=== PATIENT | male | born 1995 | race African-American/Black ===

== ENCOUNTER 2017-07-01 04:14 | Day surgery (SDC) | payer OTHER ==
[2017-07-01] MEDS ORDERED: ONDANSETRON 4 MG/2 ML VIAL IVP STA ×2 (04:45→05:49)
[2017-07-01] MEDS ORDERED: SODIUM CHLORIDE 0.9% 1,000 ML IV STA ×2 (04:45→08:48)
[2017-07-01 04:56] LABS: BASOPHILS # (AUTO) 0.1 10^3/uL (0.0-0.1); BASOPHILS % (AUTO) 0.7 %; EOSINOPHILS # (AUTO) 0.1 10^3/uL (0.0-0.7); EOSINOPHILS % (AUTO) 0.8 %; HGB - HEMOGLOBIN 16.6 g/dL (14.0-18.0); LYMPHOCYTES # (AUTO) 1.7 10^3/uL (1.5-3.5); LYMPHOCYTES % (AUTO) 15.7 %; MEAN CORPUSCULAR HEMOGLOBIN 27.2 pg (27.0-31.0); MEAN CORPUSCULAR HGB CONC 33.5 g/dL (32.0-36.0); MEAN CORPUSCULAR VOLUME 81.1 fL (80.0-94.0); MEAN PLATELET VOLUME 7.8 fL (7.4-11.4); MONOCYTES # (AUTO) 0.9 10^3/uL (0.0-1.0); MONOCYTES % (AUTO) 8.6 %; NEUTROPHILS # (AUTO) 7.9 10^3/uL (1.5-6.6); NEUTROPHILS % (AUTO) 74.2 %; PLT - PLATELET COUNT 226 10^3/uL (130-450); RED BLOOD COUNT 6.12 10^6/uL (4.70-6.10); RED CELL DISTRIBUTION WIDTH 13.7 % (12.0-15.0); WHITE BLOOD COUNT 10.7 x10^3/uL (4.8-10.8)
[2017-07-01 05:01] LABS: ALBUMIN/GLOBULIN RATIO 1.2 (1.0-2.2); BILIRUBIN,TOTAL 0.7 mg/dL (0.2-1.0); CALCIUM 9.2 mg/dL (8.5-10.3); CREATININE 1.2 mg/dL (0.6-1.2); TOTAL PROTEIN 7.4 g/dL (6.7-8.2)
--- NOTE | 2017-07-01 05:37 | ED Physician Documentation ---
PD HPI ABD PAIN - Stated complaint Stated Complaint: ABD PAIN - Chief complaint Chief Complaint: Abd Pain - History obtained from History obtained from: Patient - History of Present Illness Timing - onset: Enter time (00:00 (midnight)), Today Timing - duration: Hours Timing - details: Abrupt onset Pain level max: 10 Pain level now: 8 Quality: Pain Location: Other (across lower abdomen, more pronounced on right) Radiation: Lower back Improved by: Other (no ameliorating factors) Worsened by: Palpation Associated symptoms: Nausea, Vomiting. No: Fever, Diarrhea, Constipation Similar symptoms before: Has not had sx before Recently seen: Not recently seen Review of Systems Constitutional: denies: Fever, Chills, Sweats Cardiac: reports: Reviewed and negative Respiratory: reports: Reviewed and negative GI: reports: Abdominal Pain, Nausea, Vomiting. denies: Abdominal Swelling, Constipation, Diarrhea : denies: Dysuria, Frequency Skin: reports: Reviewed and negative Musculoskeletal: reports: Back pain (abdominal pain radiates to back) Neurologic: reports: Reviewed and negative PD PAST MEDICAL HISTORY - Past Medical History Past Medical History: No Cardiovascular: None Respiratory: None Neuro: None Endocrine/Autoimmune: None GI: None : None HEENT: None Psych: None Musculoskeletal: None - Past Surgical History Past Surgical History: No - Present Medications Home Medications: Ambulatory Orders Medication Instructions Recorded Confirmed No Known Home Medications [No 07/01/17 07/01/17 Known Home Medications] - Allergies Allergies/Adverse Reactions: Allergies Allergy/AdvReac Type Severity Reaction Status Date / Time No Known Drug Allergies Allergy Verified 07/01/17 04:19 - Social History Does the pt smoke?: No Smoking Status: Never smoker Does the pt drink ETOH?: Yes Does the pt have substance abuse?: No - Immunizations Immunizations are current?: Yes - POLST Patient has POLST: No PD ED PE NORMAL - Vitals Vital signs reviewed: Yes - General General: Alert and oriented X 3, Well developed/nourished, Other (obvious painful distress; vomiting when I first walk into room) - HEENT HEENT: Moist mucous membranes - Neck Neck: Supple, no meningeal sign - Cardiac Cardiac: RRR, No murmur - Respiratory Respiratory: No respiratory distress, Clear bilaterally - Abdomen Abdomen: Soft, Non distended - Back Back: No CVA TTP - Derm Derm: Normal color, Warm and dry PD ED PE EXPANDED - Abdomen Abdomen: Tender to palpation (across lower abdomen but most pronounced RLQ). No : Rebound, Guarding Results - Vitals Vitals: Vital Signs - 24 hr 07/01/17 07/01/17 07/01/17 04:15 05:54 06:05 Temperature 36.6 C Heart Rate 68 62 84 Respiratory 16 18 14 Rate Blood Pressure 148/81 H 118/68 120/63 O2 Saturation 100 100 99 07/01/17 07/01/17 06:39 09:17 Temperature 37.0 C Heart Rate 73 60 Respiratory 16 98 H Rate Blood Pressure 116/47 L 128/57 L O2 Saturation 97 Oxygen O2 Source Room air - Labs Labs: Laboratory Tests 07/01/17 07/01/17 07/01/17 04:40 04:40 06:29 WBC 10.7 RBC 6.12 H Hgb 16.6 Hct 49.6 MCV 81.1 MCH 27.2 MCHC 33.5 RDW 13.7 Plt Count 226 MPV 7.8 Neut # 7.9 H Lymph # 1.7 [place] # 0.9 Eos # 0.1 Baso # 0.1 Absolute Nucleated RBC 0.01 Nucleated RBC % 0.1 Sodium 135 Potassium 3.6 Chloride 100 L Carbon Dioxide 28 Anion Gap 7.0 BUN 21 H Creatinine 1.2 Estimated GFR (MDRD) 92 Glucose 109 H Calcium 9.2 Total Bilirubin 0.7 AST 29 ALT 48 Alkaline Phosphatase 70 Total Protein 7.4 Albumin 4.0 Globulin 3.4 Albumin/Globulin Ratio 1.2 Lipase 24 Urine Color YELLOW Urine Clarity CLEAR Urine pH 7.0 Ur Specific [place] 1.015 Urine Protein NEGATIVE Urine Glucose (UA) NEGATIVE Urine Ketones NEGATIVE Urine Occult Blood NEGATIVE Urine Nitrite NEGATIVE Urine Bilirubin NEGATIVE Urine Urobilinogen 0.2 (NORMAL) Ur Leukocyte Esterase NEGATIVE Ur Microscopic Review NOT INDICATED Urine Culture Comments NOT INDICATED - Rads (name of study) CT A/P Radiology: Prelim report reviewed, See rad report PD MEDICAL DECISION MAKING - ED course Complexity details: reviewed results, re-evaluated patient, considered differential, d/w patient Departure - Departure Disposition: ED Transfer to [facility] Clinical Impression: Appendicitis Condition: Good
[2017-07-01] MEDS ORDERED: HYDROmorphone 1 MG/ML SYRINGE IVP STA (05:49)
[2017-07-01] MEDS ORDERED: KETOROLAC 60 MG/2 ML VIAL IVP STA (05:49)
[2017-07-01] MEDS ORDERED: SODIUM CHLORIDE 0.9% 1,000 ML IV ONE (06:02)
[2017-07-01] MEDS ORDERED: IOPAMIDOL-300 100 ML VIAL ONE (06:06)
[2017-07-01] MEDS ORDERED: IOPAMIDOL-300 100 ML VIAL IVP ONE (06:23)
[2017-07-01 06:46] LABS: BILIRUBIN,URINE NEGATIVE (NEGATIVE); GLUCOSE, URINE (UA) NEGATIVE (NEGATIVE); KETONES,URINE (UA) NEGATIVE (NEGATIVE); LEUKOCYTE ESTERASE, URINE NEGATIVE (NEGATIVE); NITRITE,URINE NEGATIVE (NEGATIVE); OCCULT BLOOD,URINE NEGATIVE (NEGATIVE); PROTEIN,URINE NEGATIVE (NEGATIVE); UROBILINOGEN,URINE 0.2 (NORMAL) E.U./dL (NORMAL)
[2017-07-01 06:47] LABS: CLARITY,URINE CLEAR (CLEAR)
--- NOTE | 2017-07-01 06:53 | CT Preliminary Report ---
Exam: CT ABDOMEN/PELVIS W/ IMPRESSION: 1. Appendicitis measuring up to about 10 mm in diameter. 2. No abscess seen. 3. Fatty liver. [facility] SITE ID: [id number]
--- NOTE | 2017-07-01 06:54 | CT Report ---
EXAM: CT ABDOMEN AND PELVIS EXAM DATE: 07/01/2017 06:30 AM. CLINICAL HISTORY: Mid to right-sided abdominal pain. COMPARISONS: None. TECHNIQUE: Routine helical CT imaging was performed through the abdomen and pelvis. IV contrast: 100M L ISOVUE 300. Enteric contrast: No. Reconstructions: Coronal and sagittal. In accordance with CT protocol optimization, one or more of the following dose reduction techniques w ere utilized for this exam: automated exposure control, adjustment of mA and/or KV based on patient s ize, or use of iterative reconstructive technique. FINDINGS: Lung Bases: Unremarkable. Liver: Fatty infiltration. Gallbladder/Bile Ducts: Unremarkable. Spleen: Normal. Pancreas: Normal. Adrenal Glands: Normal. Kidneys: Normal. No masses or hydronephrosis. Peritoneal Cavity/Bowel: Moderate stool in the colon. No diverticulitis. No bowel obstruction seen. N ormal sized mesenteric and retroperitoneal lymph nodes. No free air or free fluid. Borderline dilated inflamed appendix measuring 10 mm. No periappendiceal abscess. Pelvic Organs: Normal. The bladder and visualized pelvic organs are within normal limits. Vasculature: No aneurysms or other significant abnormality. Bones: No significant abnormality. Other: None. IMPRESSION: 1. Appendicitis measuring up to about 10 mm in diameter. 2. No abscess seen. 3. Fatty liver. [facility] Referring Provider Line: [phone] SITE ID: [id number]
[2017-07-01] MEDS ORDERED: PIPERACILLIN/TAZOBACTAM 3.375 GM in SODIUM CHLORIDE 0.9% MINIBAG 100 ML IV STA (08:40)
[2017-07-01] MEDS ORDERED: LACTATED RINGERS 1,000 ML IV ONE (12:10)
[2017-07-01] MEDS ORDERED: PROPOFOL 200 MG/20 ML VIAL IVP ONE (12:40)
[2017-07-01] MEDS ORDERED: ACETAMINOPHEN 1,000 MG/100 ML 100 ML IV ONE (12:40)
[2017-07-01] MEDS ORDERED: ROCURONIUM 50 MG/5 ML VIAL IVP ONE (12:40)
[2017-07-01] MEDS ORDERED: GLYCOPYRROLATE 1 MG/5 ML VIAL IVP ONE (12:40)
[2017-07-01] MEDS ORDERED: LIDOCAINE-PF 2% 10 ML AMP SUBQ ONE (12:40)
[2017-07-01] MEDS ORDERED: DEXAMETHASONE 4 MG/ML VIAL IVP ONE (12:40)
[2017-07-01] MEDS ORDERED: KETOROLAC 30 MG/ML VIAL IVP ONE (12:40)
[2017-07-01] MEDS ORDERED: ONDANSETRON 4 MG/2 ML VIAL IVP ONE (12:40)
[2017-07-01] MEDS ORDERED: MIDAZOLAM 2 MG/2 ML VIAL IVP ONE (12:40)
[2017-07-01] MEDS ORDERED: fentaNYL 100 MCG/2 ML VIAL IVP ONE (12:40)
[2017-07-01] MEDS ORDERED: NEOSTIGMINE 1 MG/1 ML 10 ML MDV IVP ONE (12:40)
[2017-07-01] MEDS ORDERED: BUPIVACAINE 0.25% PF 30 ML VIAL SUBQ ONE ×2 (12:46)
[2017-07-01] MEDS ORDERED: HYDROcod/ACETAM 5/325 MG TABLET ONE (14:41)
[2017-07-01 15:42] VITALS: BP 131/58
--- NOTE | 2017-07-01 18:37 | OPERATIVE REPORT ---
DATE OF SERVICE: 07/01/2017 Physician: Dominick Silva MD DATE OF PROCEDURE: 07/01/2017. PREOPERATIVE DIAGNOSIS: Acute appendicitis. POSTOPERATIVE DIAGNOSIS: Acute appendicitis. OPERATION: Laparoscopic appendectomy. OPERATING SURGEON: Dominick Silva MD ANESTHESIA: General. INDICATIONS FOR PROCEDURE: The patient is a 21-year-old male who presents with right lower quadrant abdominal pain. He came to the emergency room to be evaluated. A CT scan of the abdomen and pelvis revealed acute appendicitis. FINDINGS AT SURGERY: The patient had acutely inflamed, nonperforated appendicitis. DESCRIPTION OF PROCEDURE: After informed consent was obtained, the patient was taken to the operating room, placed in supine position. General endotracheal anesthesia was administered. The patient's abdomen was then prepped and draped in usual sterile fashion. An infraumbilical incision was made in the skin using scalpel. Prior to making any abdominal incisions, the skin was injected with local anesthesia. A 5 mm Optiview trocar was then inserted through the incision, through the fascia and into the abdominal cavity under direct vision. The abdomen was then insufflated. A 5 mm port was then placed in the right and left lower quadrants under direct vision. The 5 mm port at the umbilicus was then switched to a 12 mm port under direct vision. The appendix was then identified in right lower quadrant and was acutely inflamed and nonperforated. An opening was then made in the mesentery of the appendix at its base. An Endo-TY was then placed across the base of the appendix, stapling and dividing it. Two Endo-GIAs were placed serially across the mesentery of the appendix, stapling and dividing it. The appendix was then placed in an Endobag and removed through the umbilical port. There was some mild bleeding at the stapled appendix staple line, which was controlled with clips. Right lower quadrant was thoroughly irrigated and no bleeding was noted. The ports were then removed and no bleeding was noted at the port sites, with the abdomen then being desufflated. The umbilical fascial defect was closed using 0 Vicryl suture. Skin incisions were closed using 4-0 Monocryl subcuticular stitch. Dermabond was then applied. The patient was then awakened, extubated, and taken from the operating room in stable condition. ESTIMATED BLOOD LOSS: Less than 5 mL COMPLICATIONS: None. CONDITION OF THE PATIENT END OF PROCEDURE: Stable. SPECIMEN: Appendix. DRAINS AND PACKS: None. CLASSIFICATION OF WOUND: Clean/contaminated. TD: 07/01/2017 18:37
== END 2017-07-01 08:46 | disposition home or self-care (01) ==
LOC: EDBD → ED 04:14 → SDS 08:45
PROVIDERS: ATTEND Surgery
PROC: 0DTJ4ZZ Resection of Appendix, Percutaneous Endoscopic Approach (ICD-10-PCS; principal; 2017-07-01 12:00)
DX: K35.80 Unspecified acute appendicitis (principal)
CPT/HCPCS: 36415; 44970; 74177; 80053; 81003; 83690; 85025; 96361; 96365; 96375; 96376; 99284; A9270; J0131; J1170; J7120; Q9967; 81001; 87086

== ENCOUNTER 2018-12-17 18:35 | Emergency (ER) | payer OTHER ==
--- NOTE | 2018-12-17 22:11 | ED Physician Documentation ---
PD HPI OPHTHO - Stated complaint Stated Complaint: L EYE BLURRY - Chief complaint Chief Complaint: Heent - History obtained from History obtained from: Patient - History of Present Illness Timing - duration: Hours (4) Timing - details: Abrupt onset Pain level now: 3 Location: Left Quality / character: Aching. No: Itching, Burning Associated symptoms: Decreased vision. No: Redness, Swelling, Tearing, Discharge, Matting, FB sensation, Photophobia, Double vision, Headache Contributing factors: Wears glasses, Wears contacts. No: Exposed to conjunctivitis, Recent URI, FB, Chemical exposure, acid, Chemical exposure, base, Blunt trauma Similar symptoms before: Has not had sx before Recently seen: Not recently seen - Additional information Additional information: This is a 23-year-old man who presents with complaints that he got up to go to work tonight and took a shower. Put his contacts and any noticed that his left eye was blurry so it took him out and put a second set in it and realized that it was still blurry so he took the contacts out put his glasses on. When his vision continued to be blurry only in the left eye he became concerned so he is here for evaluation. He said sitting out in the waiting room waiting to be seen he developed kind of a aching pain behind the left eye that he would rated about a 3 out of 10. Denies upper respiratory symptoms or any known foreign body or injury to the eye. He is never had this happen previously. Review of Systems Constitutional: denies: Fever Eyes: reports: Decreased vision. denies: Discharge, Irritation Ears: denies: Ear pain Nose: denies: Rhinorrhea / runny nose Throat: denies: Sore throat PD PAST MEDICAL HISTORY - Past Medical History Past Medical History: No Cardiovascular: None Respiratory: None Neuro: None Endocrine/Autoimmune: None GI: None : None HEENT: None Psych: None Musculoskeletal: None - Past Surgical History Past Surgical History: No - Present Medications Home Medications: Ambulatory Orders Medication Instructions Recorded Confirmed No Known Home Medications 07/01/17 07/01/17 - Allergies Allergies/Adverse Reactions: Allergies Allergy/AdvReac Type Severity Reaction Status Date / Time No Known Drug Allergies Allergy Verified 12/17/18 18:47 - Social History Does the pt smoke?: No Smoking Status: Never smoker Does the pt drink ETOH?: Yes Does the pt have substance abuse?: No - Immunizations Immunizations are current?: Yes - POLST Patient has POLST: No PD ED PE NORMAL - Vitals Vital signs reviewed: Yes - General General: Alert and oriented X 3, No acute distress, Well developed/nourished - HEENT HEENT: Atraumatic, PERRL, EOMI, Moist mucous membranes, Other (The patient was noted to have a contact in his left eye. We moisturize the eye with saline and he was able to remove the contact.) - Cardiac Cardiac: RRR Results - Vitals Vitals: Vital Signs - 24 hr 12/17/18 12/17/18 22:39 23:01 Heart Rate 60 Respiratory 17 16 Rate Blood Pressure 110/76 O2 Saturation 98 Oxygen O2 Source Room air PD MEDICAL DECISION MAKING - ED course ED course: Patient had a contact in his left eye that he was unaware of. I think the this was the reason that the vision was blurry and that I. Following removal to contact he said he felt fine and the vision no longer was blurry. Departure - Departure Disposition: 01 Home, Self Care Clinical Impression: Foreign body in eye Condition: Good Instructions: ED Eye Particle Conjunctiva FB Rslv Comments: Can use some saline drops just to help moisturize the eye. Follow-up with the technical account executive if needed and return if the pain is increasing or other problems arise. Discharge Date/Time: 12/17/18 23:01
[2018-12-17 23:02] VITALS: BP 110/76
== END 2018-12-17 23:01 | disposition home or self-care (01) ==
LOC: ED 18:35
DX: T15.92XA Foreign body on external eye, part unspecified, left eye, initial encounter (principal); X58.XXXA Exposure to other specified factors, initial encounter
CPT/HCPCS: 99282